=== PATIENT | male | born 1945 | race Caucasian/White ===

== ENCOUNTER → 2018-07-13 | Outpatient (CLI) | payer OTHER ==
[~2018-07-13] MED LIST: FUROSEMIDE 40 MG/4 ML VIAL ONE
== END ==
LOC: FIMAGING 08:23
PROVIDERS: ATTEND Urology
DX: N13.30 Unspecified hydronephrosis (principal)
CPT/HCPCS: 78708; A9562; J1940

== ENCOUNTER → 2018-08-04 | Outpatient (CLI) | payer OTHER | LOC: CIMAGING 09:21 ==

== ENCOUNTER 2018-09-01 11:24 | Day surgery (SDC) | payer OTHER | END 2018-09-01 15:35 | disposition home or self-care (01) | LOC: FSGY 11:24 ==